=== PATIENT | female | born 1935 | race Caucasian/White ===

== ENCOUNTER → 2016-10-21 | Outpatient (CLI) | payer MEDICARE | END | disposition home or self-care (01) | LOC: GMAJ 10:15 | PROVIDERS: ATTEND Family Medicine | DX: Z79.899 Other long term (current) drug therapy (principal) ==

== ENCOUNTER → 2016-11-13 | Outpatient (CLI) | payer MEDICARE, OTHER ==
--- NOTE | 2016-11-14 13:51 | MAM ---
History: Well woman exam. Date of exam: 11/13/2016 Services provided: Bilateral full field digital screening mammography. CAD, the images were reviewed with R2 computer aided detection. FINDINGS: Glandular tissue is near completely fatty involuted. Comparison with 2014 exam. Grouped calcifications are present bilaterally, increased in number but stable in distribution. Today's exam demonstrates a dense 6 mm nodular region on MLO view only in the upper right breast. No architectural distortion. No mammographic abnormality on the left. IMPRESSION: Incomplete study Recommendation: True lateral and exaggerated lateral craniocaudal projection views right breast. BIRAD CATEGORY: 0 INCOMPLETE Electronically signed by: Sandra Cabrera MD 11/14/2016 1:51 PM CDT Workstation: [id number]
== END | disposition home or self-care (01) ==
LOC: MAMMO 13:12
PROVIDERS: ATTEND Family Medicine
DX: Z12.31 Encounter for screening mammogram for malignant neoplasm of breast (principal)

== ENCOUNTER → 2016-12-05 | Outpatient (CLI) | payer OTHER ==
--- NOTE | 2016-12-05 15:08 | MAM ---
History: Right breast nodule. DATE OF SERVICE: 12/05/2016 Services provided: Full field digital diagnostic right mammography. Targeted Limited right breast sonography. FINDINGS: Exaggerated lateral and lateral medial projections of the right breast are obtained and confirm a dense 7 mm nodule right breast 9:00 approximately 12 cm from the nipple. Grouped microcalcifications are again noted, benign. No dominant mass or architectural distortion. Nonpalpable right breast 4 mm hypoechoic nodule with increased through transmission but internal vascularity, thick echogenic capsule and minimal edge irregularity is shown. This is felt to correspond to the mammographic finding. IMPRESSION: Suspicious exam. 4 mm solid nodule right breast 9:00 corresponds to the mammographic finding. Recommendation: Ultrasound-guided needle biopsy. Findings and recommendations were discussed with the patient. BIRAD CATEGORY: 4 SUSPICIOUS FINDINGS Electronically signed by: Sandra Cabrera MD 12/05/2016 3:07 PM CDT Workstation: [id number]
== END | disposition home or self-care (01) ==
LOC: MAMMO 13:17
PROVIDERS: ATTEND Family Medicine
DX: R92.8 Other abnormal and inconclusive findings on diagnostic imaging of breast (principal)

== ENCOUNTER → 2016-12-16 | Outpatient (CLI) | payer OTHER ==
--- NOTE | 2016-12-16 10:52 | OP ---
DATE OF PROCEDURE: 12/16/16 PREOPERATIVE DIAGNOSIS: 1. Right breast mass on ultrasound. POSTOPERATIVE DIAGNOSIS: 1. Right breast mass on ultrasound. PROCEDURE: 1. Sonographically guided needle core biopsy, right breast mass. SURGEON: Foreign Haider MD. MERCHANDISE CLERK: None. ANESTHESIA: Local infiltration of 1% lidocaine. INDICATION: The patient underwent an ultrasound which revealed what appeared to be a solid right breast mass. She was brought to the Surgical Suite today for needle core biopsy, ultrasound guided, after the risks, benefits and alternatives were discussed and accepted. FINDINGS: Two good cores were taken which on ultrasound appeared to be through the mass. No significant bleeding. The patient tolerated the procedure well. PROCEDURE: The patient was placed in the supine position with the right chest slightly elevated with a pillow. The breast was examined and the mass was noted at the 9 o'clock position. The breast medial to the ultrasound device was prepped with Betadine and draped. Local infiltration of anesthesia was obtained with 1% lidocaine. A stab wound was made with a 15 blade and then the biopsy needle was introduced with two cores taken. The cores were obtained and were sent for pathologic evaluation. Hemostasis was obtained with pressure and then a single suture of 4-0 Nylon. A sterile pressure dressing was applied. The patient tolerated the procedure well. Estimated blood loss was less than 5 mL. #[id number] [facility]
--- NOTE | 2016-12-17 09:57 | US ---
EXAM DESCRIPTION: Biopsy/Needle Guidance CLINICAL HISTORY: 81 yearsFemaleABNORMAL MAMMO COMPARISON: Diagnostic ultrasound of the right breast on 12/05/2016. Diagnostic digital right breast mammogram on the same visit. Digital screening bilateral mammographic examination 11/13/2016. TECHNIQUE: The procedure was performed by Dr. Mosquera. Verbal and written consent was obtained. The lesion was again localized at the 900 clock position of the right breast 5 cm from the nipple. Multiple needle passes were made. FINDINGS: 3 x 3 mm hypoechoic to anechoic lesion at the 900 clock position of the right breast 5 cm from the nipple. Round shape and well-circumscribed jauregui with posterior acoustic enhancement. Echogenic needle well-demonstrated entering the lesion. Lesion is only seen as a hypoechoic region on the final image. IMPRESSION: Successful, ultrasound-guided biopsy/aspiration of right breast lateral lesion. Please refer to surgical report. Pathology results pending. Electronically signed by: Idris Moseley MD 12/17/2016 9:55 AM CDT Workstation: [id number]
== END | disposition home or self-care (01) ==
LOC: US 08:30
PROVIDERS: ATTEND Surgery
DX: R92.8 Other abnormal and inconclusive findings on diagnostic imaging of breast (principal)

== ENCOUNTER → 2017-06-23 | Outpatient (CLI) | payer OTHER ==
--- NOTE | 2017-06-23 11:23 | MAM ---
EXAM DESCRIPTION: 3D Diagnostic, Right: Digital Mammography CLINICAL HISTORY: 81 yearsFemale6 MONTH FOLLOW UP P/NEG BX benign biopsy right breast November 2016. No complaints. COMPARISON: Bilateral 2-D digital screening study 11/13/2016. Right breast 2-D diagnostic screening study 12/05/2016. Reports from prior examinations also reviewed. TECHNIQUE: Right breast CC LM MLO projection full-field images, 3-D tomosynthesis digital mammographic technique. Also right breast synthesized CC MLO LM full-field images. CAD not utilized. FINDINGS: The breast parenchymal density pattern is: Scattered areas of fibroglandular density. . No skin thickening or nipple retraction multiple microcalcifications and coarse calcifications. Benign-appearing groups of microcalcifications. Intramammary lymph node near the posterior chest wall. No focal, stellate mass or density, focal asymmetry , and no suspicious microcalcifications right breast. Stable mammograms compared to prior study, taking into account differences in mammographic technique IMPRESSION: BI-RADS CATEGORY: 3 - PROBABLY BENIGN. Management: Short interval (6-month) follow-up bilateral digital mammography. 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
== END | disposition home or self-care (01) ==
LOC: MAMMO 10:47
PROVIDERS: ATTEND Family Medicine
DX: R92.8 Other abnormal and inconclusive findings on diagnostic imaging of breast (principal)
CPT/HCPCS: 77065; G0279

== ENCOUNTER → 2017-12-16 | Outpatient (CLI) | payer OTHER ==
--- NOTE | 2017-12-18 08:52 | MAM ---
EXAM DESCRIPTION: 3D Diagnostic, Bilateral: Digital Mammography CLINICAL HISTORY: 82 [id number] DIAGNOSTIC BILATERAL FOR 6 MONTH FOLLOW UP . No complaints. No family history breast cancer. Childbirth. Hysterectomy. Has taken HRT 5 or more years ago. Negative right breast biopsy. COMPARISON: 3-D Saira synthesis diagnostic right breast mammography 06/23/2017. Right breast biopsy December 16, 2016. Screening digital mammography 11/13/2016. Reports from prior examinations also reviewed. TECHNIQUE: Bilateral CC LM MLO projection full-field images, 3-D tomosynthesis digital mammographic technique. CAD not utilized. FINDINGS: The breast parenchymal density pattern is: Scattered areas of fibroglandular density. No skin thickening or nipple retraction bilateral groups of coarse and microcalcifications. Some of the smaller calcifications and become more coarse and benign appearing in the past year. No new focal, stellate mass or density, focal asymmetry , and no suspicious microcalcifications bilaterally. IMPRESSION: BI-RADS CATEGORY: 2 - BENIGN FINDINGS. FOLLOW UP: Routine digital bilateral screening, one year interval from December 2017. Written communication explaining the IMPRESSION and follow-up, will be mailed to the patient and referring health care provider. According to the [employer], yearly mammograms are recommended starting at age 40 and continuing as long as a woman is in good health. Any breast change noted on a breast self-exam should be reported promptly to the patient's healthcare provider. Breast MRI is recommended for women with an approximately 20-25% or greater lifetime risk of breast cancer, including women with a strong family history of breast or ovarian cancer and women who have been treated for Hodgkin's disease. A negative mammographic report should not delay tissue diagnosis in patients with significant clinical history or physical findings. Extremely dense breast tissue limits the sensitivity of digital mammography. Electronically signed by: Idris Moseley MD 12/18/2017 8:50 AM CDT
== END ==
LOC: MAMMO 09:59
PROVIDERS: ATTEND Family Medicine
DX: R92.8 Other abnormal and inconclusive findings on diagnostic imaging of breast (principal)
CPT/HCPCS: 77066; G0279

== ENCOUNTER 2018-07-29 13:49 | Emergency (ER) | payer OTHER ==
[2018-07-29] MEDS ORDERED: MONTELUKAST 10 MG TAB PO ONE (14:20)
[2018-07-29] MEDS ORDERED: predniSONE 20 MG TAB PO ONE (14:20)
[2018-07-29] MEDS ORDERED: IPRATROPIUM/ALBUTEROL 3 ML VIAL NEB ONE (14:20)
--- NOTE | 2018-07-29 14:53 | RAD ---
EXAM DESCRIPTION: Chest,2 Views CLINICAL HISTORY: asthma exac COMPARISON: January 12, 2011 chest x-ray. November 06, [address] TECHNIQUE: PA/lateral FINDINGS: Left lung base is markedly abnormal in appearance with deterioration from 2011 examination consistent with a massive left-sided hiatal hernia containing essentially the entire stomach as demonstrated in [address] A large air-fluid level likely within the stomach above the hemidiaphragm is noted with compressive atelectasis and opacification at the left lung base. Coarsened interstitial markings in the medial right lung base are noted but little changed from 2011. No acute infiltrates or other abnormalities are noted. No significant pleural effusions are seen. The aorta is tortuous and calcified and heart size is obscured but felt to be within the limits of normal and the central mediastinum. The mid and upper lung martin are unremarkable. IMPRESSION: 1. Markedly abnormal lung base with the mid and posterior left lower one third of the hemithorax filled with a large hiatal hernia containing essentially the entire stomach and a large air-fluid level. This is worse in appearance than seen in 2011. 2. Mildly coarsened markings medial right lung base unchanged from 2011 study with no acute consolidating changes. The mid and upper lung martin are clear. 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
--- NOTE | 2018-07-29 15:05 | ED.PDOC ---
History of Present Illness - General Chief Complaint: Respiratory Problem Stated Complaint: Pt complains of chest congestion Time Seen by Provider: 07/29/18 14:12 Source: patient Exam Limitations: no limitations - History of Present Illness Initial Comments: Medications an 83-year-old female presenting to the emergency room secondary to persistent cough over the last few weeks. The patient is a known asthmatic and has been taking Advair but she has not really been taking any albuterol on an as-needed basis. Minimal runny nose. She does have a significant cough. Pulmonary exam shows diffuse scattered wheezes. No respiratory distress. No real chest pain aside from just with coughing. Timing/Duration: 1 week Severity: moderate Improving Factors: nothing Worsening Factors: nothing Associated Symptoms: cough Allergies/Adverse Reactions: Allergies Penicillin G Allergy (Verified 06/11/14 11:06) Home Medications: Ambulatory Orders Albuterol Inhaler [Ventolin Hfa Inhaler] 2 puff INH QID PRN #1 inh 06/11/14 Fenofibrate [Tricor] 145 mg PO DAILY 06/11/14 Fluticasone/Salmeterol 250/50 [Advair 250/50 Diskus] 1 puff INH BID 06/11/14 Fosinopril Sodium 40 mg PO DAILY 06/11/14 Venlafaxine HCl [Effexor] 75 mg PO DAILY 06/11/14 Acetamin W/Cod #3 Tab [Tylenol #3 Tab] 1 ea PO Q4-6H PRN #12 tab 01/27/16 Review of Systems - Review of Systems Constitutional: States: no symptoms reported EENTM: States: no symptoms reported Respiratory: States: cough, short of breath, wheezing Cardiology: States: no symptoms reported, chest pain - with cough only Gastrointestinal/Abdominal: States: no symptoms reported Genitourinary: States: no symptoms reported Musculoskeletal: States: no symptoms reported Skin: States: no symptoms reported Neurological: States: no symptoms reported Endocrine: States: no symptoms reported All other Systems: No Change from Baseline Past Medical History (General) - Patient Medical History Hx Seizures: No Hx Stroke: No Hx Dementia: No Hx Asthma: Yes Hx of COPD: No Hx Cardiac Disorders: No Hx Congestive Heart Failure: No Hx Pacemaker: No Hx Hypertension: Yes Hx Thyroid Disease: No Hx Diabetes: No Hx Gastroesophageal Reflux: No Hx Renal Disease: No Hx Cancer: No Hx of HIV: No Hx Hepatitis C: No Hx MRSA: No Surgical History: Hysterectomy, other - Vaccination History Hx Tetanus, Diphtheria Vaccination: Yes Hx Influenza Vaccination: Yes Hx Pneumococcal Vaccination: Yes Immunizations Up to Date: Yes - Social History Hx Tobacco Use: No Hx Alcohol Use: No Hx Substance Use: No Hx Substance Use Treatment: No Hx Depression: No - Female History Patient is a Female of Child Bearing Age (10 -59 yrs old): No Family Medical History - Family History Mother Family History: Unknown Physical Exam - Physical Exam General Appearance: Alert, Comfortable, No apparent distress Eye Exam: bilateral normal Ears, Nose, Throat: hearing grossly normal, normal pharynx Neck: full range of motion, supple Respiratory: no respiratory distress, no accessory muscle use, wheezing Cardiovascular/Chest: normal peripheral pulses, regular rate, rhythm, no edema Peripheral Pulses: radial,right: 2+, radial,left: 2+, dorsalis pedis,right: 2+, dorsalis pedis,left: 2+ Gastrointestinal/Abdominal: non tender, soft Rectal Exam: deferred Back Exam: no CVA tenderness, no vertebral tenderness Extremity: non-tender, normal inspection, no pedal edema, normal capillary refill 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 The patient reports that she does have a history of significant allergies and actually has had asthma in the past related to her allergies. She also has a known hiatal hernia. X-ray here today shows no definite focal infiltrate but a significantly enlarged left-sided hiatal hernia. The patient is breathing much better after a DuoNeb treatment. She is going to be written for a nebulizer machine and duonebs to be taken 3 times daily at least for the next couple of weeks. While allergies may certainly be contributing to her asthma it is very likely that she is having her asthma irritated by micro-aspirations given the significant size of a hiatal hernia. To this end, it is recommended that the patient eats small frequent meals and avoid lying back flat for at least 2-3 hours after taking a meal. It is also preferable that she sleep with the head of her bed up 6 or 8 inches. This will also help reduce aspiration. I'm going to place her on 2 days of oral prednisone additionally to help quiet down the lungs. She needs to follow back up with her primary care doctor next week. ER warnings were given. Departure - Departure Clinical Impression: Hiatal hernia Asthma exacerbation Qualifiers: Asthma severity: moderate Asthma persistence: persistent Qualified Code(s): J45.41 - Moderate persistent asthma with (acute) exacerbation Disposition: Discharge to Home or Self Care Condition: Fair Departure Forms: ED Discharge - Pt. Copy, Patient Portal Self Enrollment Instructions: DI for Asthma -- Adult, Hiatal Hernia (DC) Diet: bland diet Activity: increase activity as tolerated Referrals: Jonny Blankenship MD [Primary Care Provider] - 1-5 Days Home Medications: Ambulatory Orders Albuterol Inhaler [Ventolin Hfa Inhaler] 2 puff INH QID PRN #1 inh 06/11/14 Fenofibrate [Tricor] 145 mg PO DAILY 06/11/14 Fluticasone/Salmeterol 250/50 [Advair 250/50 Diskus] 1 puff INH BID 06/11/14 Fosinopril Sodium 40 mg PO DAILY 06/11/14 Venlafaxine HCl [Effexor] 75 mg PO DAILY 06/11/14 Acetamin W/Cod #3 Tab [Tylenol #3 Tab] 1 ea PO Q4-6H PRN #12 tab 01/27/16 Additional Instructions: the patient is an 83-year-old female presenting to the emergency room secondary to persistent cough and mild shortness of breath that has been somewhat progressive over the last 2-3 weeks. The patient reports that she does have a history of significant allergies and actually has had asthma in the past related to her allergies. She also has a known hiatal hernia. X-ray here today shows no definite focal infiltrate but a significantly enlarged left-sided hiatal hernia. The patient is breathing much better after a DuoNeb treatment. She is going to be written for a nebulizer machine and duonebs to be taken 3 times daily at least for the next couple of weeks. While allergies may certainly be contributing to her asthma it is very likely that she is having her asthma irritated by micro-aspirations given the significant size of a hiatal hernia. To this end, it is recommended that the patient eats small frequent meals and avoid lying back flat for at least 2-3 hours after taking a meal. It is also preferable that she sleep with the head of her bed up 6 or 8 inches. This will also help reduce aspiration. I'm going to place her on 2 days of oral prednisone additionally to help quiet down the lungs. She needs to follow back up with her primary care doctor next week. ER warnings were given.
[2018-07-29 15:33] VITALS: BP 133/81; TEMP 98.2; O2SAT 90
== END 2018-07-29 15:35 | disposition home or self-care (01) ==
LOC: ER 13:49
DX: J45.41 Moderate persistent asthma with (acute) exacerbation (principal); K44.9 Diaphragmatic hernia without obstruction or gangrene; I10 Essential (primary) hypertension; Z79.899 Other long term (current) drug therapy; Z88.0 Allergy status to penicillin
CPT/HCPCS: 71046; 94640; J7512; J7620

== ENCOUNTER 2019-03-06 10:22 | Emergency (ER) | payer OTHER ==
[2019-03-06] MEDS ORDERED: LIDOCAINE 1% 10 ML VIAL INJ ONE (10:30)
[2019-03-06] MEDS ORDERED: TETANUS,DIPHTHERIA,PERTUSSIS 1 EA SYG IM ONE (10:42)
[2019-03-06 11:12] VITALS: TEMP 98.9
--- NOTE | 2019-03-06 11:24 | RAD ---
EXAM DESCRIPTION: Hand,Right 3 Views CLINICAL HISTORY: 83 years Female, Fall. Assess for fx COMPARISON: None. FINDINGS: 3 views of the right hand show no acute fracture or malalignment. Advanced polyarticular degenerative changes involving multiple interphalangeal joints as well as the first CMC and triscaphe joints. Joint space narrowing at the radiocarpal joint. No lytic or sclerotic bone lesion, no periostitis. No radiopaque foreign body or soft tissue gas. IMPRESSION: Severe polyarticular degenerative changes without acute right hand abnormality. Electronically signed by: Edwin Handley MD 03/06/2019 11:23 AM CDT
--- NOTE | 2019-03-06 11:27 | CT ---
EXAM: CT Head Without Intravenous Contrast CLINICAL HISTORY: Fall. Assess for ICH TECHNIQUE: Axial computed tomography images of the head/brain without intravenous contrast. Sagittal and coronal reformatted images were created and reviewed. This CT exam was performed using one or more of the following dose reduction techniques: automated exposure control, adjustment of the mA and/or kV according to patient size, and/or use of iterative reconstruction technique. COMPARISON: No relevant prior studies available. FINDINGS: Limitations: None. Brain: There is age related cortical atrophy and periventricular white matter hypodensity most consistent with chronic small ischemic change. No acute infarct, hemorrhage or mass. Ventricles: Unremarkable. No ventriculomegaly. Bones/joints: Unremarkable. No acute fracture. Soft tissues: There is a small right frontal scalp hematoma and laceration. Sinuses: There is near complete opacification of the right sphenoid sinus. There is mild left sphenoid thickening. Mastoid air cells: Unremarkable as visualized. No mastoid effusion. IMPRESSION: 1. There is a small right frontal scalp hematoma and laceration. 2. No acute change in the brain. Electronically signed by: Shauna Deutsch MD 03/06/2019 11:26 AM CDT
--- NOTE | 2019-03-06 11:35 | ED.PDOC ---
History of Present Illness - General Chief Complaint: Trauma Stated Complaint: fall Time Seen by Provider: 03/06/19 10:24 Source: patient, RN notes reviewed, Vital Signs reviewed, family, RN/MD Exam Limitations: no limitations Additional Information: Patient is a 83 yo F presenting for evaluation of ground level fall. She was trying to walk faster in sandals and tripped, falling to the ground. She did hit her head but did not lose consciousness. She is not on anti-coagulation. Patient denies any prodromal chest pain, shortness of breath, abdominal pain, weakness, lightheadedness, or dizziness. She has been feeling well over the past few days. She is unsure of last tetanus. She is currently endorsing pain near laceration site on right forehead and right hand pain. - History of Present Illness Loss of Consciousness: no loss of consciousness Allergies/Adverse Reactions: Allergies Penicillin G Allergy (Verified 06/11/14 11:06) Home Medications: Ambulatory Orders RX: Albuterol Inhaler [Ventolin Hfa Inhaler] 2 puff INH QID PRN #1 inh 06/11/14 RX: Fenofibrate [Tricor] 145 mg PO DAILY 06/11/14 RX: Fluticasone/Salmeterol 250/50 [Advair 250/50 Diskus] 1 puff INH BID 06/11/14 RX: Fosinopril Sodium 40 mg PO DAILY 06/11/14 RX: Venlafaxine HCl [Effexor] 75 mg PO DAILY 06/11/14 Acetamin W/Cod #3 Tab [Tylenol #3 Tab] 1 ea PO Q4-6H PRN #12 tab 01/27/16 Acetaminophen [Tylenol] 500 mg PO .Q6H PRN 5 Days tab 03/06/19 Review of Systems - Review of Systems Constitutional: Denies: chills, fever EENTM: Denies: blurred vision, double vision Respiratory: Denies: short of breath Cardiology: Denies: chest pain Gastrointestinal/Abdominal: Denies: abdominal pain Genitourinary: States: no symptoms reported Musculoskeletal: Denies: back pain, neck pain Skin: States: see HPI Neurological: Denies: headache, numbness, weakness Hematologic/Lymphatic: Denies: easy bleeding Past Medical History (General) - Patient Medical History Hx Seizures: No Hx Stroke: No Hx Dementia: No Hx Asthma: Yes Hx of COPD: No Hx Cardiac Disorders: No Hx Congestive Heart Failure: No Hx Pacemaker: No Hx Hypertension: Yes Hx Thyroid Disease: No Hx Diabetes: No Hx Gastroesophageal Reflux: No Hx Renal Disease: No Hx Cancer: No Hx of HIV: No Hx Hepatitis C: No Hx MRSA: No Surgical History: appendectomy, cholecystectomy, Hysterectomy, other - Vaccination History Hx Tetanus, Diphtheria Vaccination: Yes Hx Influenza Vaccination: Yes Hx Pneumococcal Vaccination: Yes - Social History Hx Tobacco Use: No Hx Alcohol Use: No Hx Substance Use: No Hx Substance Use Treatment: No Hx Depression: No Family Medical History - Family History Mother Family History: Unknown Physical Exam - Physical Exam General Appearance: Alert, Comfortable, Well Developed, Well Groomed, Well Hydrated, Well Nourished Head Injury: other - laceration to right forehead and brow Eye Exam: bilateral normal ENT Exam: hearing grossly normal, no evidence of ENT injury Neck Exam: non-tender, full range of motion, normal alignment, normal inspection Cardiovascular/Respiratory: regular rate, rhythm, no M/R/G, normal peripheral pulses, no JVD, normal breath sounds, no respiratory distress Gastrointestinal/Abdominal: normal bowel sounds, non tender, soft Back Exam: normal inspection, no vertebral tenderness 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 3.5cm laceration superior to right eyebrow - Zeus Coma Score Best Eye Response (Zeus): (4) open spontaneously Best Verbal Response (Zeus): (5) oriented Best Motor Response ([place]): (6) obeys commands Progress - Progress Progress: DDx: Subdural hematoma, laceration, hand fx, abrasion, epidural hematoma, subarachnoid hemorrhage 03/06/19 14:37 patient presents for evaluation of mechanical ground-level fall. She was overall well-appearing and nontoxic. She no focal neurologic deficits on examination. She denied any complaints at this time. She was updated on teta nus immunization. Laceration was repaired with 3 sutures of 5-0 Prolene for each laceration. She had was not significant for acute intracranial hemorrhage. X-ray of the hand was not significant for an acute fracture or dislocation. She was able to ambulate with a steady gait. She'll be discharged home with plans for outpatient follow-up. - Results/Orders Results/Orders: CT Head: IMPRESSION: 1. There is a small right frontal scalp hematoma and laceration. 2. No acute change in the brain. XR Right Hand: No acute fracture or dislocation Procedures - Laceration/Wound Repair Right Frontal Wound Length (cm): 3 Wound's Depth, Shape: superficial Wound Explored: clean Irrigated w/ Saline (cc's): 400 Betadine Prep?: No Anesthesia: 1% Lidocaine Volume Anesthetic (cc's): 2 Wound Debrided: minimal Wound Repaired With: sutures Suture Size/Type: 5:0, prolene Number of Sutures: 3 Layer Closure?: No Sterile Dressing Applied?: Yes Splint Applied?: No Right Head Wound Length (cm): 3.5 Wound's Depth, Shape: superficial Wound Explored: clean Irrigated w/ Saline (cc's): 350 Betadine Prep?: No Anesthesia: 1% Lidocaine Volume Anesthetic (cc's): 1.5 Wound Debrided: minimal Wound Repaired With: sutures Suture Size/Type: 5:0, prolene Number of Sutures: 3 Layer Closure?: No Sterile Dressing Applied?: Yes Departure - Departure Clinical Impression: Hand abrasion Qualifiers: Encounter type: initial encounter Laterality: right Qualified Code(s): S60.511A - Abrasion of right hand, initial encounter Forehead laceration Qualifiers: Encounter type: initial encounter Qualified Code(s): S01.81XA - Laceration without foreign body of other part of head, initial encounter Fall Qualifiers: Encounter type: initial encounter Qualified Code(s): W19.XXXA - Unspecified fall, initial encounter Disposition: Discharge to Asst Living Departure Forms: ED Discharge - Pt. Copy, Patient Portal Self Enrollment Instructions: DI for Trauma, Laceration Repair With Stitches (DC) Diet: resume usual diet Activity: walking as tolerated Referrals: Jonny Blankenship MD [Primary Care Provider] - 1-2 Weeks Prescriptions: Acetaminophen [Tylenol] 500 mg PO .Q6H PRN 5 Days tab PRN Reason: Pain Home Medications: Ambulatory Orders RX: Albuterol Inhaler [Ventolin Hfa Inhaler] 2 puff INH QID PRN #1 inh 06/11/14 RX: Fenofibrate [Tricor] 145 mg PO DAILY 06/11/14 RX: Fluticasone/Salmeterol 250/50 [Advair 250/50 Diskus] 1 puff INH BID 06/11/14 RX: Fosinopril Sodium 40 mg PO DAILY 06/11/14 RX: Venlafaxine HCl [Effexor] 75 mg PO DAILY 06/11/14 Acetamin W/Cod #3 Tab [Tylenol #3 Tab] 1 ea PO Q4-6H PRN #12 tab 01/27/16 Acetaminophen [Tylenol] 500 mg PO .Q6H PRN 5 Days tab 03/06/19 Additional Instructions: Keep wound clean and dry. Watch for redness, purulent drainage, or fevers. Have sutures removed in five days. Comments: Tony Garcia # [phone]
[2019-03-06 13:04] VITALS: BP 119/88
[2019-03-06 13:07] VITALS: O2SAT 88
== END 2019-03-06 12:55 ==
LOC: ER 10:22
DX: S01.81XA Laceration without foreign body of other part of head, initial encounter (principal); S60.511A Abrasion of right hand, initial encounter; S01.111A Laceration without foreign body of right eyelid and periocular area, initial encounter; J45.909 Unspecified asthma, uncomplicated; I10 Essential (primary) hypertension; Z79.899 Other long term (current) drug therapy; Z88.0 Allergy status to penicillin; W01.0XXA Fall on same level from slipping, tripping and stumbling without subsequent striking against object, initial encounter; Y93.01 Activity, walking, marching and hiking; Y92.129 Unspecified place in nursing home as the place of occurrence of the external cause

== ENCOUNTER → 2019-04-28 | Outpatient (CLI) | payer OTHER | END | disposition home or self-care (01) | LOC: BFHH 14:52 | PROVIDERS: ATTEND Family Medicine | DX: I10 Essential (primary) hypertension (principal) ==

== ENCOUNTER → 2019-05-04 | Outpatient (CLI) | payer OTHER ==
--- NOTE | 2019-05-04 17:21 | MRI ---
EXAM DESCRIPTION: Brain w/o Contrast: MRI. CLINICAL HISTORY: VISUAL HALLUCINATIONS COMPARISON: CT scan of the head 06 March 2019. TECHNIQUE: Multiplanar, high-field MRI unit, multiple diffusion sequences, multiple conventional sequences without contrast. FINDINGS: Confluent hyperintense FLAIR and T2-weighted signal in the periventricular white matter abutting the frontal and occipital horns of the lateral ventricles and also the upper bodies of the lateral ventricles bilaterally in the frontoparietal and occipital lobes. This is involving the upper brian radiata and the bilateral centrum semiovale. Also confluent hyperintense white matter signal in the bilateral insular cortex. Fewer Subcortical white matter lesions bilaterally.. No hemorrhage, no cerebral edema, no mass-effect. Confluent and focal hyperintense T2 and FLAIR signal in the lateral left basal ganglia, and external capsule. Small punctate lesions in the right basal ganglia. No hemorrhage, mass effect, or diffusion restriction. Heterogeneous hyperintense FLAIR and T2 signal in the aki of the brainstem. No hemorrhage or mass effect. Normal signal in the bilateral cerebellar hemispheres. No hemorrhage, no parenchymal edema, no mass-effect. Concordance of the diffusion and non-diffusion sequences with no diffusion restriction. Artifact limits diffusion evaluation at the level of the mid cerebellar hemispheres, inferior temporal lobes, and maxillary air cells. Cortical sulci, ventricles, and other CSF spaces, and the subdural spaces are slightly prominent for patient's age.. No effacement or displacement. No midline shift. No extra-axial hemorrhage. Normal flow signal void in the major vessels of the muscogee Reddy, and the venous sinuses. IACs are symmetric bilaterally. Bilateral mucosal thickening or fluid involving the minimal amount of mastoid air cells. No mass effect on the cerebellopontine angles. Pituitary gland occupies only the base of sella. Base of the cerebellar tonsils is just above the level of the the foramen magnum. Mucous periosteal thickening in most of the paranasal sinuses, with large right sphenoid air cell impressing into the right sphenoid air cell.. The bony calvarium is intact. IMPRESSION: 1. 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 Relatively symmetric bilaterally, except for involvement of the left basal ganglia, left external capsule and insular cortex and the medial left temporal lobe. No hemorrhage, no mass effect, no diffusion restriction. Minimal involvement of the right basal ganglia and the aki. 2. Minimal to moderate chronic sinusitis paranasal cavities. Minimal inflammatory changes in the bilateral mastoid air cells. Electronically signed by: Idris Moseley MD 05/04/2019 5:20 PM [employer]
== END ==
LOC: MRI 07:50
PROVIDERS: ATTEND Family Medicine
DX: R44.1 Visual hallucinations (principal); R90.82 White matter disease, unspecified; J32.9 Chronic sinusitis, unspecified

== ENCOUNTER → 2019-06-22 | Outpatient (CLI) | payer OTHER | LOC: NC 15:32 | PROVIDERS: ATTEND Family Medicine | DX: I10 Essential (primary) hypertension (principal); R44.1 Visual hallucinations ==